=== PATIENT | male | born 1955 | race Caucasian/White ===

== ENCOUNTER 2020-10-18 03:11 | Emergency (ER) | payer OTHER ==
[~2020-10-18] VITALS: Ht 182.9 cm; Wt 163.9 kg
[2020-10-18 03:17] VITALS: BP 157/99
[2020-10-18 04:44] LABS: BASOPHILS % (AUTO) 1 % (0-1); EOSINOPHILS % (AUTO) 2 % (1-7); LYMPHOCYTES % (AUTO) 20 % (22-44); MEAN CORPUSCULAR HEMOGLOBIN 30.7 pg (27.5-34.5); MEAN PLATELET VOLUME 7.2 fL (7.4-10.4); MONOCYTES % (AUTO) 7 % (2-9); NEUTROPHILS % (AUTO) 70 % (42-75); PLATELET COUNT 211 x10^3/uL (130-400); RED BLOOD COUNT 4.61 x10^6/uL (4.38-5.82)
[2020-10-18 04:53] LABS: INTERNATIONAL NORMALIZED RATIO 2.33 (0.93-1.1); PROTHROMBIN TIME 23.9 Seconds (9.6-11.5)
[2020-10-18 04:54] LABS: ANION GAP 4 mmol/L (5-15); CALCIUM 8.6 mg/dL (8.5-10.1); CHLORIDE 107 mmol/L (98-107)
[2020-10-18 04:56] LABS: CREATININE 1.03 mg/dL (0.7-1.3)
[2020-10-18 04:59] LABS: MICROSCOPIC INDICATED
[2020-10-18] MEDS ORDERED: CEFDINIR 300 MG CAPSULE ONE (05:30)
[2020-10-18] MEDS ORDERED: CEFDINIR 300 MG CAPSULE PO ONE (05:30)
[2020-10-18] MEDS ORDERED: PLEASE ENTER ALLERGIES MC SCH (05:30)
--- NOTE | 2020-10-18 05:49 | NUR ---
Patient given discharge instructions and they have confirmed that they understand the instructions. Patient ambulatory with steady gait. NAD, all questions answered appropriately, denies additional needs at this time. No personal belongings left in room after discharge.
== END 2020-10-18 05:50 | disposition home or self-care (01) ==
LOC: ED 05:14
DX: N30.91 Cystitis, unspecified with hematuria (principal)
CPT/HCPCS: 36415; 80048; 81001; 85025; 85610; 87077; 87086; 87186; 99283